=== PATIENT | female | born 2000 | race Caucasian/White ===

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

== ENCOUNTER 2022-01-10 20:25 | Emergency (ER) | payer SELFPAY ==
[~2022-01-10] VITALS: Ht 157.5 cm; Wt 86.2 kg
[~2022-01-10 20:25] MED LIST: AZITHROMYCIN250 MG PO; TESSALON PERLE100 MG PO; TYLENOL # 31 EA PO
[2022-01-10] MEDS ORDERED: ONDANSETRON HCL INJ 2MG/ML 2ML 2 MG/ML VIAL IV STA (20:50)
[2022-01-10 20:59] LABS: BASOPHILS % 0.2 % (0.0-1.0); HEMATOCRIT 38.7 % (34.2-44.1); HEMOGLOBIN 13.4 g/dL (12.0-16.0); LYMPHOCYTES % 11.6 % (18.0-39.1); MEAN CORPUSCULAR HEMOGLOBIN 31.6 pg (28-32); MEAN CORPUSCULAR HGB CONC 34.6 g/dL (31-35); MEAN CORPUSCULAR VOLUME 91.3 fL (81-99); MONOCYTES # (AUTO) 0.4 (0.2-0.8); MONOCYTES % 4.8 % (4.4-11.3); NEUTROPHILS # (AUTO) 7.5 (2.1-6.9); NEUTROPHILS % 83.2 % (38.7-80.0); PLATELET COUNT 417 x10e3/uL (140-360); RED BLOOD COUNT 4.24 x10e6/uL (3.6-5.1); RED CELL DISTRIBUTION WIDTH 11.3 % (11.7-14.4)
[2022-01-10 21:11] LABS: ANION GAP 12.4 mmol/L (8-16); CALCIUM 9.3 mg/dL (8.4-10.2); CREATININE, SERUM 0.77 mg/dL (0.57-1.11); POTASSIUM 3.4 mmol/L (3.5-5.1)
== END 2022-01-11 00:29 | disposition other institution (70) ==
LOC: ER 20:52
DX: S02.32XA Fracture of orbital floor, left side, initial encounter for closed fracture (principal); R51.9 Headache, unspecified; W50.0XXA Accidental hit or strike by another person, initial encounter; Y92.008 Other place in unspecified non-institutional (private) residence as the place of occurrence of the external cause; F41.9 Anxiety disorder, unspecified
CPT/HCPCS: 36415; 70450; 70486; 80048; 84702; 85025; 99284; J2405

== ENCOUNTER 2024-06-20 08:23 | Emergency (ER) | payer OTHER ==
[~2024-06-20] VITALS: Ht 157.5 cm; Wt 77.1 kg
[2024-06-20 08:25] VITALS: PULSE 89; RESP 16; TEMP 99
[2024-06-20] MEDS ORDERED: AMOX TR-K CLV1 EAC2 PO (08:40)
[2024-06-20] MEDS ORDERED: CIPROFLOX-DEXA7.5 ML RIGHT EAR (08:40)
[2024-06-20 09:20] VITALS: BP 130/91; PULSE 86; RESP 16; TEMP 97.7; O2SAT 100
[2024-06-20] MEDS ORDERED: CIPROFLOXACIN-DEXAMETHASONE (OTIC) 7.5 ML BOTTLE OT SCH (11:45)
[2024-06-20] MEDS ORDERED: CIPROFLOXACIN/HYDROCORTISONE OTIC 10ML BTL OT SCH ×2 (17:00)
== END 2024-06-20 08:50 | disposition home or self-care (01) ==
LOC: ER 08:25
DX: R50.9 Fever, unspecified (principal); H66.93 Otitis media, unspecified, bilateral; H60.93 Unspecified otitis externa, bilateral; J30.2 Other seasonal allergic rhinitis; D64.9 Anemia, unspecified; F41.9 Anxiety disorder, unspecified
CPT/HCPCS: 99283